=== PATIENT | male | born 1970 | race Caucasian/White ===

== ENCOUNTER 2021-12-08 13:15 | Emergency (ER) | payer OTHER ==
--- NOTE | 2021-12-08 14:05 | NUR ---
CALLED X1. NO SHOW.
--- NOTE | 2021-12-08 14:05 | NUR ---
PATIENT LEFT WITHOUT BEING SEEN BY DR. CHOWDHURY. NO FURTHER CARE PROVIDED FOR PATIENT.
--- NOTE | 2021-12-08 14:21 | NUR ---
Called x1 with no answer
--- NOTE | 2021-12-08 14:26 | NUR ---
CALLEDX3. NO SHOW
--- NOTE | 2021-12-08 14:58 | NUR ---
CALLED [phone], NO ANSWERING.
== END 2021-12-08 14:05 | disposition left against medical advice (07) ==
LOC: MED 13:15
DX: R53.1 Weakness (principal); Z53.21 Procedure and treatment not carried out due to patient leaving prior to being seen by health care provider

== ENCOUNTER 2021-12-10 13:14 | Observation (INO) | payer OTHER ==
[~2021-12-10] VITALS: Ht 174 cm; Wt 70.3 kg
[2021-12-10 13:24] VITALS: BP 195/114
--- NOTE | 2021-12-10 13:32 | NUR ---
PT AMBULATED TO ER BED 2
[2021-12-10] MEDS ORDERED: NACL 0.9% 1,000 ML IV ONE (13:50)
--- NOTE | 2021-12-10 13:50 | NUR ---
MADISYN PAINTING AT BEDSIDE . PT IN GOWN
--- NOTE | 2021-12-10 13:58 | NUR ---
COVID SWAB AND URINE COLLECTED AND SENT TO LAB
[2021-12-10 14:09] LABS: BASOPHILS # (AUTO) 0.1 K/uL (0.00-0.22); BASOPHILS % (AUTO) 1.1 % (0.0-2.0); EOSINOPHILS # (AUTO) 0.1 K/uL (0-0.4); HEMATOCRIT 40.1 % (36-52); HEMOGLOBIN 14.2 g/dL (12.0-18.0); LYMPHOCYTES # (AUTO) 0.9 K/uL (2.0-11.5); LYMPHOCYTES % (AUTO) 16.3 % (20.5-51.1); MEAN CORPUSCULAR HEMOGLOBIN 32 pg (27-31); MEAN CORPUSCULAR HGB CONC 35 g/dL (33-37); MEAN CORPUSCULAR VOLUME 91.7 fL (80-94); MONOCYTES # (AUTO) 0.7 K/uL (0.8-1.0); MONOCYTES % (AUTO) 11.8 % (1.7-9.3); NEUTROPHILS % (AUTO) 69.8 % (42.2-75.2); PLATELET COUNT (AUTO) 141 K/uL (140-450); RED BLOOD CELL COUNT(AUTO) 4.38 MIL/uL (4.20-6.10); RED CELL DISTRIBUTION WIDTH 13.5 % (11.6-13.7); WHITE BLOOD COUNT (AUTO) 5.7 K/uL (4.8-10.8)
[2021-12-10 14:11] LABS: APPEARANCE,URINE CLEAR (CLEAR); BILIRUBIN,URINE 1+ (NEGATIVE); BLOOD, URINE TRACE-I (NEGATIVE); COLOR,URINE YELLOW (YELLOW); LEUKOCYTE ESTERASE ,URINE NEGATIVE (NEGATIVE); NITRITE, URINE NEGATIVE (NEGATIVE); UGLUCOSE NEGATIVE (NEGATIVE)
[2021-12-10 14:28] LABS: ALBUMIN 4.2 g/dL (3.4-5.0); ANION GAP 10.7 (8-16); ASPARTATE AMINOTRANSFERASE 108 U/L (15-37); CARBON DIOXIDE 32.1 mmol/L (21-32); CHLORIDE 90 mmol/L (98-107); CREATININE 1.5 mg/dL (0.6-1.3); GFR ARICAN-AMERICAN 63 mL/min (>90); GLUCOSE 138 mg/dL (74-106); LIPASE 322 U/L (73-393); SODIUM SERUM 130 mmol/L (136-145); TOTAL BILIRUBIN 1.6 mg/dL (0.0-1.0); UREA NITROGEN, BLOOD 18 mg/dL (7-18)
[2021-12-10 14:35] LABS: WBC,URINE 0-5 /HPF (0-5)
[2021-12-10 14:38] LABS: POTASSIUM 2.8 mmol/L (3.5-5.1)
[2021-12-10] MEDS ORDERED: POTASSIUM CHLORIDE 10 MEQ TABER PO ONE (14:45)
--- NOTE | 2021-12-10 14:49 | NUR ---
51YR OLD MALE BIB SELF C/O DIZZINESS /WEAKNESS. PAIN TO LEFT RIB AREA AND LEFT SHOULDER AREA. PT WAS WORKING AT HIS HOUSE , BECAME DIZZY, SWEATY, AND "JUST DIDNT FEEL RIGHT" FALL TO GROUND. NO LOC. WELSH SPEAKING ONLY. PT ON BEDSIDE MONITOR . HOB ELEVATED. BED AT LOWEST POSITION. NKDA NO HX
--- NOTE | 2021-12-10 14:50 | NUR ---
K+ 2.8 DR DICK AWARE
--- NOTE | 2021-12-10 15:04 | NUR ---
DR DICK AT BEDSIDE
[2021-12-10] MEDS ORDERED: ENALAPRILAT 2.5 MG/2 ML VIAL IVP ONE (15:10)
--- NOTE | 2021-12-10 15:59 | NUR ---
PT IS ADMISSION TO HOSPITAL. PT AWARE OF DX AND ADMIT TO HOSPITAL
--- NOTE | 2021-12-10 16:15 | NUR ---
51/M PRESENTS TO ED WITH C/O DIZZINESS, LEFT RIB AREA AND LEFT SHOULDER PAIN SINCE TODAY. PATIENT REPORTS HE WAS DOING HOUSEWORK AT HOME AND STATES HE BECAME DIZZY, STATING HE FELL TO THE GROUND. DENIES LOC, HEAD OR NECK INJURY.
[2021-12-10] MEDS ORDERED: MORPHINE SULFATE 4 MG/ML SYR IVP ONE (16:30)
[2021-12-10] MEDS ORDERED: ONDANSETRON 4 MG/2 ML VIAL IVP PRN (18:10)
[2021-12-10] MEDS ORDERED: MORPHINE SULFATE 4 MG/ML SYR IVP PRN (18:10)
[2021-12-10] MEDS ORDERED: POTASSIUM CHLORIDE 10 MEQ TABER PO PRN (18:10)
[2021-12-10] MEDS ORDERED: ACETAMINOPHEN 325 MG TAB PO PRN (18:10)
[2021-12-10] MEDS ORDERED: MAG SULF 2000 MG/WATER PREMIX 50 ML IV PRN (18:10)
[2021-12-10] MEDS ORDERED: MAGNESIUM OXIDE 400 MG TAB PO PRN (18:10)
[2021-12-10] MEDS ORDERED: KCL 20 MEQ/WATER INJ PREMIX 200 ML IV PRN (18:10)
[2021-12-10] MEDS ORDERED: HYDROcodone/APAP 5/325 MG 1 TAB TAB PO PRN (18:10)
[2021-12-10] MEDS: NACL 0.9% 1,000 ML IV SCH (18:39)
--- NOTE | 2021-12-10 18:57 | NUR ---
PT RESTING IN BED. ON BEDSIDE CARDAIC MONITOR. HOB ELEVATED. PAIN LEVEL 3/10. MEDICATIED PT. RESP EVEN AND UNLABORED.
--- NOTE | 2021-12-10 19:40 | NUR ---
PT WAS GIVEN CARDIAC MEAL
--- NOTE | 2021-12-10 21:43 | NUR ---
TALKED TO ON-CALL DR RIVAS. GAVE TELEPHONE ORDER FOR PT'S HIGH BP.
[2021-12-10] MEDS: hydrALAZINE 20 MG/ML VIAL IVP PRN (21:51)
--- NOTE | 2021-12-10 22:08 | NUR ---
Patient will be admitted to care of DR MAYFIELD. Admited to TELE. Will go to room 112A. Belongings list completed. Report to BETSY DAVIS.
--- NOTE | 2021-12-10 22:10 | NUR ---
PATIENT WAS BROUGHT TO [facility] UNIT FROM ER VIA EDGAR HICKMAN, AOX4. CC: GENERALIZED WEAKNESS. NO SOB NOTED. BREATHING NORMAL UNLABORED. ALL SAFETY MEASURES ARE IN PLACE. MRSA SCREENING DONE. SKIN IS INTACT. AMBULATORY. ORIENTED TO ROOM, CALL LIGHT , STAFF. ABLE TO WALK TO HIS BED. WILL CONTINUE TO MONITOR.
[2021-12-11 04:00] VITALS: BP 148/82
[2021-12-11] MEDS: hydrALAZINE 20 MG/ML VIAL IVP PRN ×3 (06:05→16:49)
[2021-12-11] MEDS: NACL 0.9% 1,000 ML IV SCH (06:40)
[2021-12-11 07:12] LABS: BASOPHILS # (AUTO) 0.1 K/uL (0.00-0.22); BASOPHILS % (AUTO) 1.2 % (0.0-2.0); EOSINOPHILS # (AUTO) 0.1 K/uL (0-0.4); EOSINOPHILS % (AUTO) 2.4 % (0.0-4.0); HEMATOCRIT 39.4 % (36-52); HEMOGLOBIN 13.8 g/dL (12.0-18.0); LYMPHOCYTES # (AUTO) 1.4 K/uL (2.0-11.5); LYMPHOCYTES % (AUTO) 26.1 % (20.5-51.1); MEAN CORPUSCULAR HEMOGLOBIN 33 pg (27-31); MEAN CORPUSCULAR HGB CONC 35 g/dL (33-37); MEAN CORPUSCULAR VOLUME 92.9 fL (80-94); MONOCYTES # (AUTO) 0.8 K/uL (0.8-1.0); MONOCYTES % (AUTO) 14.3 % (1.7-9.3); PLATELET COUNT (AUTO) 119 K/uL (140-450); RED BLOOD CELL COUNT(AUTO) 4.24 MIL/uL (4.20-6.10); RED CELL DISTRIBUTION WIDTH 13.1 % (11.6-13.7); WHITE BLOOD COUNT (AUTO) 5.4 K/uL (4.8-10.8)
[2021-12-11 07:25] LABS: ALBUMIN 3.8 g/dL (3.4-5.0); ANION GAP 12.1 (8-16); CREATININE 0.9 mg/dL (0.6-1.3); MAGNESIUM 1.4 mg/dL (1.8-2.4); POTASSIUM 4.1 mmol/L (3.5-5.1); TOTAL BILIRUBIN 1.6 mg/dL (0.0-1.0)
--- NOTE | 2021-12-11 07:28 | NUR ---
ENDORSED TO AM NURSE FOR CONTINUITY OF CARE. NO FEVER, NO SOB NOTED AT THIS TIME.
--- NOTE | 2021-12-11 07:29 | NUR ---
RECEIVED REPORT FROM ELECTRONICS UTILITY WORKER NURSE FOR CONTINUITY OF CARE. PT IN BED RESTING AT THIS TIME. RESPIRATIONS ARE EVEN AND UNLABORED ON ROOM AIR. NO SIGNS OF DISTRESS NOTED. PT IS ALERT AND ORIENTED X4, ABLE TO VERBALIZE NEEDS, ABLE TO FOLLOW COMMANDS. PT IS [place]UR[place] SPEAKING ONLY. PT IS ON CARDIAC DIET. ABD IS NONTENDER, NONDISTENDED WITH BOWEL SOUNDS PRESENT. PER ELECTRONICS UTILITY WORKER NURSE, LAST BOWEL MOVEMENT WAS LAST NIGHT. PT HAS IV TO L AC, 20G, RUNNING NS AT 80ML/HR. SKIN IS WARM, DRY, AND INTACT. CALL LIGHT WITHIN REACH. ALL SAFETY MEASURES IN PLACE. WILL CONTINUE TO MONITOR.
[2021-12-11 08:00] VITALS: BP 176/92
--- NOTE | 2021-12-11 08:00 | NUR ---
Patient's Plan of Care was discussed and reviewed with LINE ANALYST:
--- NOTE | 2021-12-11 08:46 | NUR ---
ADMINISTERED SCHEDULED MEDICATIONS. EDUCATED PT ON MEDS ADMINISTERED. PT VERBALIZED UNDERSTANDING. WILL CONTINUE TO MONITOR.
[2021-12-11] MEDS ORDERED: amLODIPine 5 MG TAB PO SCH (09:00)
[2021-12-11] MEDS ORDERED: DOCUSATE SODIUM 100 MG GELCAP PO SCH (09:00)
--- NOTE | 2021-12-11 09:19 | NUR ---
COMPOSITE LAMINATOR NOTIFIED NURSE OF ELEVATED BP. WENT TO TAKE PT BP, BP AT 176/92. PT HAS ORDER FOR PRN HYDRALAZINE Q6H, HOWEVER PRN WAS GIVEN BY TRAFFIC WORKFORCE REPRESENTATIVE NURSE AT [address] MAYFIELD MADE AWARE. AWAITING RESPONSE.
--- NOTE | 2021-12-11 09:55 | NUR ---
NEW ORDERS RECEIVED FOR NORVASC 5MG PO DAILY.
--- NOTE | 2021-12-11 10:05 | NUR ---
PATIENT HAS BEEN SCREENED AND CATEGORIZED HIGH NUTRITION RISK. PATIENT WILL BE SEEN WITHIN 1-2 DAYS OF ADMISSION. 12/11/21-12/12/21 REVIEWED BY LINDSEY B[address]BY RD
--- NOTE | 2021-12-11 10:06 | NUR ---
MEDICATION NORVASC ADMINISTERED. WILL RE-ASSESS BP.
--- NOTE | 2021-12-11 10:12 | NUR ---
PT MAG LEVEL 1.4, MAG RIDER STARTED BY RN. EDUCATED PT ON MEDS. PT VERBALIZED UNDERSTANDING. WILL CONTINUE TO MONITOR.
--- NOTE | 2021-12-11 11:10 | NUR ---
RE-CHECKED PT BP. BP STILL ELEVATED. PT MADE AWARE. PT STATES "I WANT TO WAIT A BIT BEFORE I GET MORE MEDICATION. BECAUSE I USUALLY DONT TAKE ANY BP MEDS".
[2021-12-11 12:00] VITALS: BP 186/94
--- NOTE | 2021-12-11 13:12 | NUR ---
WENT TO CHECK ON PT. PT STATES HE WOULD LIKE TO SPEAK TO DR BEFORE MORE MEDS ARE GIVEN. INFORMED PT THAT DR MAYFIELD WILL DO ROUNDS LATER TODAY. PT VERBALIZED UNDERSTANDING.
[2021-12-11] MEDS ORDERED: MAG SULF 2000 MG/WATER PREMIX 50 ML IV ONE (14:05)
--- NOTE | 2021-12-11 14:20 | NUR ---
DR MAYFIELD AT BEDSIDE WITH PT. EDUCATED PT REGARDING BP MEDICATIONS. PT INFORMED DR THAT "HE HAD BP MEDICATIONS A FEW MONTHS AGO BUT WENT TO [place] AND RAN OUT AND NEVER WENT BACK TO PCP TO REFILL". EDUCATED PT ON NECESSITY OF BP MEDICATIONS. PT VERBALIZED UNDERSTANDING. WILL CONTINUE TO MONITOR.
[2021-12-11] MEDS ORDERED: HYDR-1098 PO (15:00)
[2021-12-11] MEDS ORDERED: ISOS30TE68 PO (15:00)
[2021-12-11] MEDS ORDERED: AMLO5TAB PO (15:00)
[2021-12-11 16:49] VITALS: BP 180/101
--- NOTE | 2021-12-11 17:20 | NUR ---
WENT OVER DISCHARGE PAPERWORK WITH PT. ANSWERED ALL QUESTIONS. PT SIGNED ALL PAPERWORK. REMOVED IV, IV CATHETER INTACT. PT WILL DISCHARGE HOME WITH FAMILY, AWAITING RIDE.
--- NOTE | 2021-12-11 17:50 | NUR ---
PT DISCHARGED HOME WITH FAMILY. ALL BELONGINGS TAKEN UPON DISCHARGE.
== END 2021-12-11 17:50 | disposition home or self-care (01) ==
LOC: MED 13:14 → MTU 18:12
PROVIDERS: ADMIT Hospitalist; ATTEND Hospitalist
DX: I10 Essential (primary) hypertension (principal); Z20.822 Contact with and (suspected) exposure to COVID-19; R55 Syncope and collapse; R53.1 Weakness; E83.42 Hypomagnesemia; E86.0 Dehydration; N17.9 Acute kidney failure, unspecified; E87.6 Hypokalemia; E87.1 Hypo-osmolality and hyponatremia; Z79.899 Other long term (current) drug therapy
CPT/HCPCS: 36415; 71045; 80053; 81001; 83690; 83735; 84484; 85025; 87081; 93005; 96361; 96365; 96366; 96367; 96375; 96376; 99285; G0378; J0360; J2270; J3475; J3490